=== PATIENT | male | born 1990 | race Caucasian/White ===

== ENCOUNTER 2020-04-28 22:26 | Emergency (ER) | payer OTHER ==
[~2020-04-28] VITALS: Ht 172.7 cm; Wt 71.7 kg
[2020-04-28 22:34] VITALS: BP 111/56
[2020-04-28] MEDS ORDERED: PROPARACAINE OPHTH 0.5%, 15ML ONE (22:39)
[2020-04-28] MEDS ORDERED: FLUORESCEIN OPHTHALMIC 1 MG STRIP ONE (22:39)
[2020-04-28] MEDS ORDERED: POLYTRIM OPHTH 10ML EACHEYE ONE (23:00)
--- NOTE | 2020-04-28 23:19 | NUR ---
Meds admin per jun.
== END 2020-04-28 23:21 | disposition home or self-care (01) ==
LOC: ED 23:00
DX: T26.32XA Burns of other specified parts of left eye and adnexa, initial encounter (principal); T26.31XA Burns of other specified parts of right eye and adnexa, initial encounter; F17.210 Nicotine dependence, cigarettes, uncomplicated; X58.XXXA Exposure to other specified factors, initial encounter; Y93.89 Activity, other specified; Y92.89 Other specified places as the place of occurrence of the external cause; Y99.8 Other external cause status
CPT/HCPCS: 99283; 99406